=== PATIENT | male | born 1945 | race Caucasian/White ===

== ENCOUNTER 2019-09-08 13:33 | Inpatient (IN) | payer OTHER ==
[~2019-09-08] VITALS: Ht 180.3 cm; Wt 55.8 kg
--- NOTE | 2019-09-08 15:04 | NUR ---
SE RECIBE PTE EL CUAL REFIERE ADORMECIMIENTO EN LADO DERECHO DEL CUERPO Y MAREOS, PTE REFIERE PRESENTAR PROBLEMAS DESDE HACE VARIOS MALDONADO ERIK EL ADORMECIMIENTO EN LADO AFECTADO. SE REALIZA EKG A PTE EL CUAL SE PRESNETA A DR. RASHIDA FRANKEL. SE COLOCA PTE EN BAKARI Y SE CONECTA A MONITOR CARDIACO.
--- NOTE | 2019-09-08 16:44 | NUR ---
PACIENTE ALERTA Y ORIENTADO EN NELLIE FREYA ESFERAS, ES ORIENTADO SOBRE ORDENES MEDICAS, REFIERE ENTENDER. SE COLECTAN MUESTRAS DE CASS, SE CANALIZA VENA Y SE ADMINISTRA DIMITRY 0.9% NSS A KVO. PLACA DE PECHO PORTABLE REALIZADA, PENDIENTE CT SCAN DE MANNY, PACIENTE CONECTADO A MONITOR CARDIACO PRESENTANDO RITMO SINOSAL.
--- NOTE | 2019-09-09 | NUR ---
SE RECIBE PACIENTE ALERTA Y ORIENTADO EN NELLIE FREYA ESFERAS CONECTADO A MONITOR CARDIACO CON RITMO CARDIACO REGULAR Y OXIMETRIA DE PULSO. PACIENTE CON BUEN PATRON RESPIRATORIO Y PIEL TIBIA AL TACTO. SE OBSERVA IVF'S PATENTE REJI DE EDEMA Y ENROJECIMIENTO BAJANDO UN .9NSS @ 50ML/HR. PENDIENTE RE-EVALUACION MEDICA.
--- NOTE | 2019-09-09 02:07 | NUR ---
SE ADMINISTRA TORADOL 60MG IM EN GLUTEO RT CON MEDIDAS ASEPTICAS.
--- NOTE | 2019-09-09 08:02 | NUR ---
SE RECIBE PTE MASCULINO E 73 YRS ALERTA CONCIENTE Y TRANQUILO EN CAMA . PTE SE OBSERVA CON IVF PATENTE Y REJI DE EDEDMA. SE LE POLO S/V LA CUAL SE DOCUEMTA. Y SE OBSERVA POR CAMBIOS POR CAMBIOS EN CARR[place]CO CONDICION.
--- NOTE | 2019-09-09 08:05 | NUR ---
PTE SE MANTIENE CONSULTADO CON DESIREE BECKER MEDICINA INTERNA LA CUAL SE MANIENE NOTICIFICADO.
--- NOTE | 2019-09-09 11:01 | NUR ---
SE REALIZA EKG A PTE. MICHAEL ORDEN DE ADMISION DE LA LEATHARenee RAMÍREZ SE ESCANEA Y SE ANEXA A EXPEDIENTE.
[2019-09-10] MEDS ORDERED: GABAPENTIN300 M2 PO (08:27)
[2019-09-10] MEDS ORDERED: ULTRAM50 MG (08:27)
[2019-09-10] MEDS ORDERED: ENDOCET 5-3251 EACH (08:27)
[2019-09-10] MEDS ORDERED: FEOSOL325 MG PO (08:28)
[2019-09-10] MEDS ORDERED: CASODEX50 MG PO (08:28)
[2019-09-10] MEDS ORDERED: FOLIC ACID1 MG PO (08:28)
[2019-09-10] MEDS ORDERED: KETOROLAC TROME10 MG (08:28)
[2019-09-10] MEDS ORDERED: NORFLEX100MG (08:28)
[2019-09-10] MEDS ORDERED: METFORMIN HCL500 M4 PO (08:28)
[2019-09-10] MEDS ORDERED: TAMSULOSIN HCL0.4 MG PO (08:29)
[2019-09-10] MEDS ORDERED: NORVASC2.5 MG PO (08:29)
[2019-09-10] MEDS ORDERED: TOPROL XL50 M1 PO (08:29)
[2019-09-10] MEDS ORDERED: ATORVASTATIN CA40 MG (08:29)
[2019-09-10] MEDS ORDERED: ATACAND HCT 161 EACH (08:29)
[2019-09-10] MEDS ORDERED: PRECOSE25 MG (08:29)
[2019-09-11] MEDS ORDERED: LOSARTAN POTASS50 MG PO (13:47)
[2019-09-11] MEDS ORDERED: CLOPIDOGREL BIS75 MG PO (13:47)
[2019-09-11] MEDS ORDERED: GABAPENTIN300 MG PO (13:47)
== END 2019-09-11 17:57 | disposition home or self-care (01) | DRG 66 ==
LOC: ER 13:33 → SEC-K 09-09 10:21 → MEDJ 09-09 10:21 → SEC-K 09-09 11:00 → MEDJ 09-09 11:28
PROVIDERS: ADMIT Internal Medicine
PROC: 4A12X4Z Monitoring of Cardiac Electrical Activity, External Approach (ICD-10-PCS; principal; 2019-09-09)
PROC: B245YZZ Ultrasonography of Left Heart using Other Contrast (ICD-10-PCS; 2019-09-09)
PROC: BW28ZZZ Computerized Tomography (CT Scan) of Head (ICD-10-PCS; 2019-09-09)
PROC: B54CZZZ Ultrasonography of Left Lower Extremity Veins (ICD-10-PCS; 2019-09-09)
PROC: B348ZZZ Ultrasonography of Bilateral Internal Carotid Arteries (ICD-10-PCS; 2019-09-09)
PROC: B342ZZZ Ultrasonography of Left Subclavian Artery (ICD-10-PCS; 2019-09-09)
PROC: B04BZZZ Ultrasonography of Spinal Cord (ICD-10-PCS; 2019-09-09)
PROC: 3E0F7GC Introduction of Other Therapeutic Substance into Respiratory Tract, Via Natural or Artificial Opening (ICD-10-PCS; 2019-09-09)
PROC: B030ZZZ Magnetic Resonance Imaging (MRI) of Brain (ICD-10-PCS; 2019-09-10)
DX: I63.9 Cerebral infarction, unspecified (principal); I10 Essential (primary) hypertension; E78.5 Hyperlipidemia, unspecified; M54.10 Radiculopathy, site unspecified
CPT/HCPCS: 70551